=== PATIENT | male | born 1930 | race African-American/Black ===

== ENCOUNTER 2017-12-22 10:59 | Observation (INO) | payer OTHER ==
[2017-12-22] MEDS ORDERED: IPRATROPIUM BROM 0.5MG/2.5ML ONE (11:44)
[2017-12-22] MEDS ORDERED: ALBUTEROL 2.5 MG/3 ML NEB SOL ONE (11:44)
[2017-12-22 12:25] LABS: Absolute Lymphocytes (CBC) 0.8 K/uL (0.7-4.9); Absolute Monocytes 0.7 K/uL (0.1-1.3); Absolute Neutrophil 5.5 K/uL (1.8-8.0); Basophils % 0.2 % (0-1.3); Eosinophils % 0.7 % (0-4.4); Hematocrit 50.8 % (39.6-49.0); Lymphocytes % 11.2 % (15.3-44.8); MCH 27.1 pg (27.0-35.0); MCV 82.7 fL (80-100); MPV 8.3 fL (7.6-11.3); Monocytes % 9.7 % (3.3-12.3); RBC Red Blood Cell Count 6.15 M/uL (4.33-5.43)
[2017-12-22] MEDS ORDERED: METHYLPREDNISOLONE 125 MG INJ ONE (12:29)
[2017-12-22 12:38] LABS: Protime INR 1.07
[2017-12-22 12:47] LABS: Albumin 3.7 g/dL (3.4-5.0); Bilirubin Direct 0.1 mg/dL (0-0.2); Bilirubin Total 0.5 mg/dL (0.2-1.0); CKMB Creatine Kinase MB 3.8 ng/mL (0.3-3.6); Magnesium 2.1 mg/dL (1.8-2.4); Potassium 4.1 mmol/L (3.5-5.1); Protein, Total 8.1 g/dL (6.4-8.2)
--- NOTE | 2017-12-22 12:53 | RAD REPORT ---
EXAM DESCRIPTION: RAD - Chest Single View - 12/22/2017 12:44 pm CLINICAL HISTORY: SOB Chest pain. COMPARISON: Chest Pa And Lat (2 Views) dated 07/03/2017; Chest Single View dated 06/08/2017; CHEST PA AND LAT 2 VIEW dated 06/27/2013; CHEST PA AND LAT 2 VIEW dated 07/13/2011 FINDINGS: Portable technique limits examination quality. The lungs are grossly clear. The heart is normal in size. No displaced fractures. IMPRESSION: No acute intrathoracic process suspected.
--- NOTE | 2017-12-22 13:03 | EKG ---
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
[2017-12-22] MEDS ORDERED: Magnesium Sulfate 2gm IVPB 2 G/50 ML BAG IV ONE (13:38)
--- NOTE | 2017-12-22 14:54 | ER ---
Nurse's Notes [facility] Name: Emilio Acharya Age: 87 yrs Sex: Male : 1930 Arrival Date: 12/22/2017 Time: 11:01 Bed 14 Private MD: Arelis Prakash F Diagnosis: Wheezing Presentation: 12/22 11:25 Presenting complaint: Patient states: Wheezing since Sunday. They saw Dr. Prakash on aj1 Sunday and were prescribed steroids and an inhaler, but he isn't feeling better. Audible wheezing noted. Reports cough. Denies fever. Transition of care: patient was not received from another setting of care. Onset of symptoms was December 19, 2017. Risk Assessment: Do you want to hurt yourself or someone else? Patient reports no desire to harm self or others. Initial Sepsis Screen: Does the patient meet any 2 criteria? No. Patient's initial sepsis screen is negative. Does the patient have a suspected source of infection? No. Patient's initial sepsis screen is negative. Care prior to arrival: None. 11:25 Method Of Arrival: Ambulatory aj1 11:25 Acuity: SHE 3 aj1 Triage Assessment: 11:31 General: Appears in no apparent distress. comfortable, Behavior is calm, cooperative, aj1 appropriate for age. Pain: Denies pain. Neuro: Level of Consciousness is awake, alert, obeys commands. Cardiovascular: Patient's skin is warm and dry. Respiratory: Airway is patent Respiratory effort is even, unlabored, Respiratory pattern is regular, symmetrical, Breath sounds with wheezes bilaterally. Historical: - Allergies: 11:31 No Known Allergies; aj1 - Home Meds: 11:31 amlodipine 10 mg oral tab 1 tab once daily [Active]; aspirin 81 mg Oral TbEC 1 tab once aj1 daily [Active]; lisinopril 10 mg Oral tab 1 tab once daily [Active]; simvastatin 40 mg Oral tab 1 tab once daily [Active]; - PMHx: 11:31 Hyperlipidemia; Hypertension; aj1 - Immunization history:: Flu vaccine is not up to date. - Social history:: Smoking status: Patient/guardian denies using tobacco, the patient reports quitting approximately 50 years ago. - Ebola Screening: : Patient denies travel to an Ebola-affected area in the 21 days before illness onset. Screenin:40 Abuse screen: Denies threats or abuse. Nutritional screening: No deficits noted. rb1 Tuberculosis screening: No symptoms or risk factors identified. Fall Risk None identified. Assessment: 11:40 General: Appears in no apparent distress. comfortable, Behavior is calm, cooperative, rb1 Denies fever. Pain: Denies pain. Neuro: Level of Consciousness is awake, alert, obeys commands, Oriented to person, place, time, situation. Cardiovascular: Capillary refill < 3 seconds is brisk in bilateral fingers. Respiratory: Airway is patent Respiratory effort is even, unlabored, Respiratory pattern is regular, symmetrical, Breath sounds with wheezes bilaterally. GI: No signs and/or symptoms were reported involving the gastrointestinal system. : No signs and/or symptoms were reported regarding the genitourinary system. Derm: Skin is dry, Skin is normal, Skin temperature is warm. 12:38 Reassessment: Patient appears in no apparent distress at this time. Patient and/or rb1 family updated on plan of care and expected duration. Pain level reassessed. Patient is alert, oriented x 3, equal unlabored respirations, skin warm/dry/pink. 13:24 Reassessment: Patient appears in no apparent distress at this time. Patient and/or rb1 family updated on plan of care and expected duration. Pain level reassessed. Patient is alert, oriented x 3, equal unlabored respirations, skin warm/dry/pink. 14:30 Reassessment: Patient appears in no apparent distress at this time. Patient and/or kr2 family updated on plan of care and expected duration. Pain level reassessed. Patient is alert, oriented x 3, equal unlabored respirations, skin warm/dry/pink. Patient denies pain at this time. 15:30 Reassessment: Patient appears in no apparent distress at this time. Patient and/or kr2 family updated on plan of care and expected duration. Pain level reassessed. Patient is alert, oriented x 3, equal unlabored respirations, skin warm/dry/pink. Patient denies pain at this time. 17:22 Reassessment: Patient appears in no apparent distress at this time. Patient and/or kr2 family updated on plan of care and expected duration. Pain level reassessed. Patient is alert, oriented x 3, equal unlabored respirations, skin warm/dry/pink. Patient denies pain at this time. Patient states feeling better. Vital Signs: 11:31 BP 158 / 84; Pulse 89; Resp 24; Temp 97.8(O); Pulse Ox 94% on R/A; Weight 93.89 kg (R); aj1 Height 6 ft. 2 in. (187.96 cm) (R); Pain 0/10; 12:30 BP 151 / 81; Pulse 81; Resp 19; Pulse Ox 100% on R/A; rb1 13:26 BP 151 / 89; Pulse 82; Resp 17; Pulse Ox 97% on R/A; rb1 14:00 BP 146 / 85; Pulse 79; Resp 19; Pulse Ox 97% on R/A; dh3 15:00 BP 164 / 80; Pulse 72; Resp 25; Pulse Ox 96% on R/A; dh3 16:00 BP 156 / 87; Pulse 80; Resp 23; Pulse Ox 98% on R/A; dh3 17:23 BP 156 / 84; Pulse 82; Resp 17; Pulse Ox 99% on R/A; kr2 11:31 Body Mass Index 26.58 (93.89 kg, 187.96 cm) aj1 ED Course: 11:01 Patient arrived in ED. sb2 11:02 Arelis Prakash MD is Private Physician. sb2 11:30 Triage completed. aj1 11:31 Arm band placed on Patient placed in an exam room. aj1 11:36 Prabhakar Sanchez PA is PHCP. jmm 11:36 Salbador Hudson MD is Attending Physician. jmm 11:40 Patient has correct armband on for positive identification. Bed in low position. Call rb1 light in reach. Side rails up X 1. Pulse ox on. NIBP on. 11:47 Margarita Munoz, RN is Primary Nurse. rb1 12:40 Second set of blood cultures drawn by az, by venipuncture 23G to right hand. dh3 12:43 X-ray completed. Portable x-ray completed in exam room. Patient tolerated procedure ml well. 12:45 XRAY Chest (1 view) In Process Unspecified. EDMS 12:55 EKG done, by ED staff, reviewed by Prabhakar TOMPKINS. dh3 13:[address] Colon with Prabhakar TOMPKINS for patient admission consulation. eb 14:53 Arelis Prakash MD is Hospitalizing Provider. [facility] 15:55 Repeat lab(s) drawn. by az, sent to lab. [facility] 17:23 No provider procedures requiring assistance completed. Patient admitted, IV remains in kr2 place. Administered Medications: 11:49 Drug: SOLU-Medrol 125 mg Route: IVP; Site: right antecubital; rb1 13:27 Follow up: Response: No adverse reaction rb1 13:35 Drug: Magnesium Sulfate 2 grams Route: IVPB; Infused Over: 2 hrs; Site: right kr2 antecubital; 17:21 Follow up: Response: No adverse reaction; IV Status: Completed infusion kr2 Outcome: 14:53 Decision to Hospitalize by Provider. [facility] 17:24 Admitted to Tele accompanied by tech, family with patient, via wheelchair, room 415, kr2 with chart, Report called to Samy 17:24 Condition: stable 17:26 Patient left the ED. 2 Signatures: Dispatcher [employer] EDMS Mary Baker, SIMONE RN aj1 Prbahakar Sanchez PA PA [facility] Alta Sharp Rebecca, RN RN rb1 Yolanda Young 3 Angelia Mckeon RN RN kr2 Janine Macario 2 Annie Hilario
--- NOTE | 2017-12-22 14:54 | EDPHYS ---
Physician Documentation [facility] Name: Emilio Acharya Age: 87 yrs Sex: Male : 1930 Arrival Date: 12/22/2017 Time: 11:01 Bed 14 Private MD: Arelis Prakash F ED Physician Salbador Hudson HPI: 12/22 11:39 This 87 yrs old Black Male presents to ER via Ambulatory with complaints of Chest jmm Congestion. 11:39 The patient presents to the emergency department with wheezing, Current therapy: jmm albuterol inhaler, oral albuterol. Onset: The symptoms/episode began/occurred gradually, 3 day(s) ago. Associated signs and symptoms: Pertinent negatives: fever. This is an 87 year old male with a history of HLP, HTN that presents to the ED with cough, wheezing beginning approx 3 days ago. Patient was seen by Dr. Hernández and prescribed azithromycin, prednisone, albuterol without relief. Denies fever or chest pain. Historical: - Allergies: 11:31 No Known Allergies; aj1 - Home Meds: 11:31 amlodipine 10 mg oral tab 1 tab once daily [Active]; aspirin 81 mg Oral TbEC 1 tab once aj1 daily [Active]; lisinopril 10 mg Oral tab 1 tab once daily [Active]; simvastatin 40 mg Oral tab 1 tab once daily [Active]; - PMHx: 11:31 Hyperlipidemia; Hypertension; aj1 - Immunization history:: Flu vaccine is not up to date. - Social history:: Smoking status: Patient/guardian denies using tobacco, the patient reports quitting approximately 50 years ago. - Ebola Screening: : Patient denies travel to an Ebola-affected area in the 21 days before illness onset. ROS: 11:39 Constitutional: Negative for fever, chills, and weight loss, Cardiovascular: Negative jmm for chest pain, palpitations, and edema. 11:39 Abdomen/GI: Negative for abdominal pain, nausea, vomiting, diarrhea, and constipation, Back: Negative for injury and pain, : Negative for injury, bleeding, discharge, and swelling, MS/Extremity: Negative for injury and deformity, Skin: Negative for injury, rash, and discoloration, Neuro: Negative for headache, weakness, numbness, tingling, and seizure. 11:39 Respiratory: Positive for cough, wheezing. 11:39 All other systems are negative. Exam: 11:39 Head/Face: atraumatic. Chest/axilla: Normal chest wall appearance and motion. [facility] Cardiovascular: Regular rate and rhythm. No edema appreciated 11:39 Constitutional: The patient appears in no acute distress, alert, awake. 11:39 Respiratory: mild respiratory distress is noted, Respirations: normal, Breath sounds: wheezing: that is moderate, is heard diffusely. 11:39 Abdomen/GI: Inspection: abdomen appears normal, Bowel sounds: normal, Palpation: abdomen is soft and non-tender, in all quadrants. 11:39 Back: ROM is normal. 11:39 Skin: Appearance: Color: normal in color. 11:39 Neuro: Orientation: is normal, Mentation: is normal, Memory: is normal. Vital Signs: 11:31 BP 158 / 84; Pulse 89; Resp 24; Temp 97.8(O); Pulse Ox 94% on R/A; Weight 93.89 kg (R); aj1 Height 6 ft. 2 in. (187.96 cm) (R); Pain 0/10; 12:30 BP 151 / 81; Pulse 81; Resp 19; Pulse Ox 100% on R/A; rb1 13:26 BP 151 / 89; Pulse 82; Resp 17; Pulse Ox 97% on R/A; rb1 14:00 BP 146 / 85; Pulse 79; Resp 19; Pulse Ox 97% on R/A; dh3 15:00 BP 164 / 80; Pulse 72; Resp 25; Pulse Ox 96% on R/A; dh3 16:00 BP 156 / 87; Pulse 80; Resp 23; Pulse Ox 98% on R/A; dh3 17:23 BP 156 / 84; Pulse 82; Resp 17; Pulse Ox 99% on R/A; kr2 11:31 Body Mass Index 26.58 (93.89 kg, 187.96 cm) aj1 MDM: 11:39 Patient medically screened. [facility] 14:52 Data reviewed: vital signs, nurses notes, lab test result(s), EKG, radiologic studies, [facility] CT scan, plain films. Counseling: I had a detailed discussion with the patient and/or guardian regarding: the historical points, exam findings, and any diagnostic results supporting the discharge/admit diagnosis, lab results, radiology results, the need for further work-up and treatment in the hospital. Response to treatment: the patient's symptoms have mildly improved after treatment. ED course: Dr. Hudson left voicemail with Dr. Colon regarding the patient's status and need for admission. 12/22 11:40 Order name: Basic Metabolic Panel; Complete Time: 12:47 [facility] 12/22 11:40 Order name: CBC with Diff; Complete Time: 12:32 [facility] 12/22 11:40 Order name: Ckmb; Complete Time: 12:47 [facility] 12/22 11:40 Order name: CPK; Complete Time: 12:47 [facility] 12/22 11:40 Order name: LFT's; Complete Time: 12:47 [facility] 12/22 11:40 Order name: Magnesium; Complete Time: 12:47 [facility] 12/22 11:40 Order name: NT PRO-BNP; Complete Time: 12:47 [facility] 12/22 11:40 Order name: PT-INR; Complete Time: 12:46 [facility] 12/22 11:40 Order name: Ptt, Activated; Complete Time: 12:46 [facility] 12/22 11:40 Order name: Troponin (emerg Dept Use Only); Complete Time: 12:47 [facility] 12/22 11:40 Order name: Procalcitonin; Complete Time: 13:21 [facility] 12/22 11:40 Order name: Blood Culture Adult (2) [facility] 12/22 15:01 Order name: Basic Metabolic Panel [facility] 12/22 15:01 Order name: Basic Metabolic Panel [facility] 12/22 11:40 Order name: XRAY Chest (1 view); Complete Time: 13:02 [facility] 12/22 11:40 Order name: EKG; Complete Time: 11:40 [facility] 12/22 11:40 Order name: Cardiac monitoring; Complete Time: 12:42 [facility] 12/22 11:40 Order name: EKG - Nurse/Tech; Complete Time: 12:55 [facility] 12/22 15:01 Order name: CONS Physician Consult [facility] 12/22 15:01 Order name: CBC with Automated Diff [facility] 12/22 15:01 Order name: CBC with Automated Diff [facility] 12/22 15:01 Order name: NT PRO-BNP [facility] 12/22 15:01 Order name: NT PRO-BNP [facility] 12/22 15:01 Order name: Troponin I [facility] 12/22 15:01 Order name: Troponin I; Complete Time: 17:25 [facility] 12/22 15:01 Order name: Troponin I [facility] 12/22 15:36 Order name: Urine Dipstick--Ancillary (enter results) 12/22 15:59 Order name: Urine Dipstick-Ancillary; Complete Time: 16:18 [facility] 12/22 11:40 Order name: IV Saline Lock; Complete Time: 12:42 [facility] 12/22 11:40 Order name: Labs collected and sent; Complete Time: 12:43 [facility] 12/22 11:40 Order name: O2 Per Protocol; Complete Time: 12:43 [facility] 12/22 11:40 Order name: O2 Sat Monitoring; Complete Time: 12:43 [facility] Administered Medications: 11:49 Drug: SOLU-Medrol 125 mg Route: IVP; Site: right antecubital; rb1 13:27 Follow up: Response: No adverse reaction rb1 13:35 Drug: Magnesium Sulfate 2 grams Route: IVPB; Infused Over: 2 hrs; Site: right kr2 antecubital; 17:21 Follow up: Response: No adverse reaction; IV Status: Completed infusion kr2 Disposition: 17:48 Co-signature as Attending Physician, Salbador Hudson MD. rn Disposition: 12/22/17 14:53 Hospitalization ordered by Arelis Prakash for Inpatient Admission. Preliminary diagnosis is Wheezing. - Bed requested for Telemetry/MedSurg (observation). - Status is Inpatient Admission. kr2 - Condition is Stable. - Problem is an acute exacerbation. - Symptoms have improved. UTI on Admission? No Signatures: Dispatcher [employer] [facility] Mary Baker RN RN aj1 Prabhakar Sanchez PA PA [facility] Salbador Hudson MD MD rn Barber, Rebecca, RN RN rb1 Angelia Mckeon RN RN kr2 Annie Hilario Corrections: (The following items were deleted from the chart) 15:40 14:53 Hospitalization Ordered by Arelis Prakash MD for Inpatient Admission. Preliminary diagnosis is Wheezing. Bed requested for Telemetry/MedSurg (observation). Status is Inpatient Admission. Condition is Stable. Problem is an acute exacerbation. Symptoms have improved. UTI on Admission? No. [facility] 17:26 15:40 12/22/2017 14:53 Hospitalization Ordered by Arelis Prakash MD for Inpatient kr2 Admission. Preliminary diagnosis is Wheezing. Bed requested for Telemetry/MedSurg (observation). Status is Inpatient Admission. Condition is Stable. Problem is an acute exacerbation. Symptoms have improved. UTI on Admission? No. eb
[2017-12-22] MEDS ORDERED: ACETAMINOPHEN 500 MG TAB PO PRN (14:57)
[2017-12-22] MEDS ORDERED: ONDANSETRON 4 MG/2 ML VIAL IV PRN (14:57)
[2017-12-22] MEDS ORDERED: ALBUTEROL 2.5 MG/3 ML NEB SOL NEB PRN (14:57)
[2017-12-22] MEDS ORDERED: IPRATROPIUM BROM 0.5MG/2.5ML NEB PRN (14:57)
[2017-12-22 15:58] LABS: Urine Blood NEGATIVE (NEG); Urine Glucose NEGATIVE (NEG); Urine Protein TRACE (NEG); Urine Specific Gravity 1.015 (1.005-1.030); Urine pH 5.5 (5.0-7.0)
--- NOTE | 2017-12-22 17:25 | CON ---
Reason For Cardiology Consult: Second-degree AV block type 1. History Of Present Illness: Mr. Acharya is 87. He has a long history of obstructive lung disease an d for the last week roughly he has been getting more short of breath Dr. Parkash saw him, made some i nterventions that were likely to have helped but the patient continued to get worse and his chief com plaint was wheezing. Since he has been here, he feels better. He has received breathing treatments. I believe he is going to receive antibiotics and steroids as well by Dr. Hudson and emergency room t eam. Apparently, he had been on Levaquin for a few days. The patient has not had heart trouble befo re. He has high blood pressure and has been taking amlodipine for hypertension. He has not been on any medicines which typically cause AV block. Amlodipine 10, lisinopril 10, simvastatin 40, are all the oral medicines he takes. He reports no allergies. He does not use tobacco. He has had no recen t syncope, chest pain. He has had dizzy spells when he stands up. Physical Examination: General: He appears to be his stated age of 87, alert, pleasant. He is in mild respiratory distress . HEENT: Normal. He is somewhat confused. He does not seem to understand the things that are asked t o him or spoken sometimes. I do not think it is hearing, I think he has at least a mild amount of de mentia. Lungs: Reveal wheezing both inspiratory and expiratory either low-pitched. Heart: Reveals a regular rate and rhythm. Abdomen: Soft. Extremities: Trace edema, distal pulses palpable. His EKG shows sinus rhythm. There is second-degree AV block. There is actually only 1 blocked beat. A year ago he had an EKG that was interpreted as accelerated junctional rhythm, but it was actually more likely to be sinus tach with a very long first-degree AV block. There is a questionable anteri or WA versus lung pattern. There is an incomplete right bundle and leftward axis or left anterior fa scicular block. The dropped beat following it the SC interval was almost normal. The SC interval at other times is well over 200 seconds getting close to 350 millisecond duration. Impression: The patient has conducting system disorders. He is not in need of emergent pacemaker. We should of course avoid using digoxin, beta blockers, verapamil, diltiazem. None of those are like ly to be useful anyway and he may benefit from a permanent pacemaker, before we do that we should see what his ejection fraction is, learn something more about his overall heart health. If he has a dep ressed ejection fraction, conduction system disorders, he might benefit from a defibrillator instead. Thank you very much for your kind referral of Mr. Acharya. I will follow him with you. PRAVEENA/DUKE Voice ID: [id number] Report ID: [id number]
[2017-12-22] MEDS: METHYLPREDNISOLONE 40 MG INJ IV SCH (17:39)
[2017-12-22 18:53] VITALS: BMI 26.6
--- NOTE | 2017-12-22 21:25 | RAD REPORT ---
EXAM DESCRIPTION: CT - Chest Angio - 12/22/2017 9:10 pm CLINICAL HISTORY: Chest pain. elevated D-Dimer COMPARISON: CTANGIO CHEST FOR PE dated 06/27/2013CTANGIO CHEST FOR PE dated 06/27/2013 TECHNIQUE: CT angiogram of the pulmonary arteries was performed with MIP. All CT scans are performed using dose optimization technique as appropriate and may include automated exposure control or mA/KV adjustment according to patient size. FINDINGS: No evidence of pulmonary thromboembolism. No acute aortic finding demonstrated. The lungs are clear. No significant pericardial or pleural fluid. Noncalcified pleural plaque noted on the right. Mildly p rominent mediastinal and hilar adenopathy again seen, decreased in size since the comparative study. No concerning bony finding. IMPRESSION: No evidence of pulmonary thromboembolism. No acute lung findings.
[2017-12-23] MEDS: METHYLPREDNISOLONE 40 MG INJ IV SCH ×4 (00:05→23:52)
[2017-12-23 05:09] LABS: Absolute Lymphocytes (CBC) 0.7 K/uL (0.7-4.9); Absolute Monocytes 0.5 K/uL (0.1-1.3); Absolute Neutrophil 4.7 K/uL (1.8-8.0); Basophils % 0.2 % (0-1.3); Hematocrit 46.6 % (39.6-49.0); Lymphocytes % 12.2 % (15.3-44.8); MCH 27.2 pg (27.0-35.0); MPV 8.3 fL (7.6-11.3); Monocytes % 7.9 % (3.3-12.3); RBC Red Blood Cell Count 5.61 M/uL (4.33-5.43)
[2017-12-23 05:29] LABS: Potassium 3.8 mmol/L (3.5-5.1)
[2017-12-23] MEDS: ASPIRIN EC 81 MG TAB PO SCH (09:32)
--- NOTE | 2017-12-23 09:40 | P.CNS ---
Date of Consult: 12/23/17 Reason for Consult: Wheezing Chief Complaint: Shortness of breath History of Present Illness: Patient is 87 years of age a very pleasant man was been having some shortness of breath for about 2 weeks complains of wheezing he quit smoking about 50 years ago denies any pericardial respiratory problems denies any fever chills cough sputum or hemoptysis no chest pain he has a history of hypertension is feels a little better no prior history of obstructive airways disease denies any swelling of his lower extremity patient was treated as an outpatient with steroids and antibiotics with no relief Allergies tomato juice Adverse Reaction (Uncoded 12/22/17 18:04) Hives/Rash Home Medications: Albuterol Sulfate [Ventolin Hfa] 1 puff IH PRN PRN 12/23/17 Amlodipine [Norvasc] 10 mg PO DAILY 12/23/17 Aspirin 81 mg PO DAILY 12/23/17 Azithromycin Tab [Zithromax*] 250 mg PO DAILY 12/23/17 Bimatoprost [Lumigan] 1 drop EACH EYE BEDTIME 12/23/17 Pravastatin Sodium 40 mg PO DAILY 12/23/17 methylPREDNISolone [Methylprednisolone] 4 mg PO DAILY 12/23/17 - Past Medical/Surgical History Diabetic: No -: HTN -: irreg heart rate -: hyperlipidema -: 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, rt eye glacoma/cataract -: appy -: cyst under left arm - Family History Brother Notes: lost all to age - Social History Alcohol use: No CD- Drugs: No Caffeine use: No Place of Residence: Home Review of Systems 10-point ROS is otherwise unremarkable General: Weakness Respiratory: Cough, Shortness of Breath Physical Examination Temp Pulse Resp BP Pulse Ox 97.8 F 75 17 190/98 H 98 12/23/17 08:00 12/23/17 08:00 12/23/17 08:00 12/23/17 08:00 12/23/17 08:00 General: Alert, Oriented x3, Cachectic Neck: Supple Respiratory: Friction rub, Expiratory wheezes Cardiovascular: Normal S1 S2 Gastrointestinal: Normal bowel sounds, Soft and benign Laboratory Data (last 24 hrs) 12/22/17 12:10: PT 12.6 H, INR 1.07, APTT 35.1 12/22/17 12:10: WBC 7.0, Hgb 16.7, Hct 50.8 H, Plt Count 163 12/22/17 12:10: Sodium 142, Potassium 4.1, BUN 13, Creatinine 1.30, Glucose 96, Magnesium 2.1, Total Bilirubin 0.5, AST 26, ALT 18, Alkaline Phosphatase 73 - Problems (1) Shortness of breath Current Visit: Yes Status: Acute Plan: Patient is a pleasant 87 years of age admitted with dyspnea and wheezing for the past 2 weeks no prior history of obstructive airways disease is chest x- rays is clear he has audible wheezing is chemistries and pro calcitonin and negative sat is 98% on room air patient's blood pressure is elevated he is probably underlying diastolic dysfunction change to p.o. prednisone p.o. Lasix resume home amlodipine daily room air pulse ox
[2017-12-23] MEDS ORDERED: AMLODIPINE 10 MG TAB PO SCH (10:00)
[2017-12-23] MEDS: FUROSEMIDE 20 MG TABLET PO SCH (10:16)
[2017-12-23] MEDS: ARFORMOTEROL TARTRATE 15 MCG/2 ML VIAL.NEB NEB SCH ×2 (10:21→20:11)
--- NOTE | 2017-12-23 11:17 | PN ---
Mr. Acharya has had no further episodes of AV block that at least none that has been captured on tele metry. He will do an echo tomorrow. He feels his breathing is getting better and Dr. Edge has s een him. I wonder if he is planning to antibiotics. He should be able to tolerate that. The patien t's blood pressure is not under good control with amlodipine, so I recommend we add hydralazine now. I will certainly do not want to add anything that could block the AV node anymore than it is already . PRAVEENA/DUKE Voice ID: [id number] Report ID: [id number]
[2017-12-23] MEDS: ENOXAPARIN 40 MG/0.4 ML SQ SCH (15:01)
[2017-12-23] MEDS: AZITHROMYCIN 250 MG TAB PO SCH (15:02)
[2017-12-23] MEDS: HYDRALAZINE HCL 25 MG TABLET PO SCH ×2 (15:02→20:47)
--- NOTE | 2017-12-23 19:08 | HP ---
Date of Admission: 12/22/2017 History Of Present Illness: An 87-year-old male, who presented to emergency room with a complaint of increased shortness of breath. The patient has visited my office 2 days earlier. He was wheezing a nd feeling short of breath. He thought that he had acute bronchitis with reactive asthma. He was st arted on Zithromax, albuterol inhaler, and Medrol Dosepak; however, the patient was seen in the emerg ency room and he was admitted for shortness of breath. The patient had no chest pain and voiced no o ther complaints. Review of Systems: Cardiovascular: No complaint. Respiratory: As above. Genitourinary: No complaints. Skeletomuscular: No complaints. Neurological: No complaints. Skeletomuscular: No complaints. Past Medical History: 1.Hypertension. 2.Hyperlipidemia. Social History: No smoking, alcohol, or IV drug abuse history. He said he smoked a little bit when he was very young, but he did not have chronic smoking history. Family History: Noncontributory. Medications: Including amlodipine 10 mg p.o. daily, lisinopril 10 mg p.o. daily, simvastatin 40 mg p .o. daily, aspirin 81 mg p.o. daily. Allergies: TOMATO. Physical Examination: Vital Signs: Blood pressure 190/98, pulse 75, temperature 97.8. Heart: Regular rate and rhythm. Chest: Mild end-expiratory wheezing, definitely less than 2 days ago. Abdomen: Soft, benign, and bowel sounds are active. Neurologic: The patient is alert, oriented, and grossly intact. Extremities: No edema. No cyanosis. Peripheral pulses are felt. The patient's room air pulse oxim etry 98%. Diagnostic Data: Chest x-ray, no acute pathology. EKG showed sinus rhythm with second-degree AV blo ck Mobitz 1, right bundle-branch block, left anterior fascicular block. Chest CT; no evidence of PE. No acute findings. Laboratory Data: CBC; white cell count 5.9, hemoglobin 15.2, hematocrit 46.6, and platelets 15.5. D -dimer was 669. Chemistry; glucose 151. TSH less than 0.3, prolactin less than 0.056. Assessment And Plan: 1.Shortness of breath and wheezing. The patient failed outpatient treatment, was admitted, put him on beta 2 agonist breathing treatments. Lasix p.o. was started for possible congestive heart failure . The patient was put on Solu-Medrol 40 mg IV q.8 hours and oxygen protocol. 2.Hypertension. Dr. White has seen the patient. I think we go ahead and stop his amlodipine becau se of his heart block and we will follow Dr. White' recommendation to be on hydralazine and we will start him on [address] Edge also Pulmonary has seen the patient with us. We will continu e the patient on beta 2 agonist breathing treatments, IV steroids pending cardiac echo, and I think w e will continue his outpatient Zithromax 250 mg daily in element of bronchitis, bacterial still could not be ruled out completely. Look orders for details. MFS/MODL Voice ID: [id number]
[2017-12-23] MEDS ORDERED: ATORVASTATIN 10 MG TAB PO SCH (21:00)
[2017-12-24 06:13] LABS: Absolute Lymphocytes (CBC) 0.9 K/uL (0.7-4.9); Absolute Monocytes 0.4 K/uL (0.1-1.3); Absolute Neutrophil 8.1 K/uL (1.8-8.0); Basophils % 0.1 % (0-1.3); Hematocrit 47.5 % (39.6-49.0); Lymphocytes % 9.9 % (15.3-44.8); MCV 82.6 fL (80-100); MPV 8.4 fL (7.6-11.3); Monocytes % 4.6 % (3.3-12.3); RBC Red Blood Cell Count 5.75 M/uL (4.33-5.43)
[2017-12-24 06:25] LABS: Potassium 4.1 mmol/L (3.5-5.1)
[2017-12-24] MEDS: ARFORMOTEROL TARTRATE 15 MCG/2 ML VIAL.NEB NEB SCH (07:33)
[2017-12-24 08:01] LABS: Blood Morphology Comment NOT SEEN (NOT SEEN); Platelet Estimate ADEQ; Urine White Blood Cell Casts OK
[2017-12-24] MEDS: FUROSEMIDE 20 MG TABLET PO SCH (08:17)
[2017-12-24] MEDS: HYDRALAZINE HCL 25 MG TABLET PO SCH (08:17)
[2017-12-24] MEDS: AZITHROMYCIN 250 MG TAB PO SCH (08:18)
[2017-12-24] MEDS: ASPIRIN EC 81 MG TAB PO SCH (08:18)
[2017-12-24] MEDS: ENOXAPARIN 40 MG/0.4 ML SQ SCH (08:19)
--- NOTE | 2017-12-24 08:31 | EKG ---
Test Date: 2017-12-22 Test Time: 20:44:46 Animal Stunner: RT-O MEASUREMENT RESULTS: Intervals: Rate: 74 IN: 266 QRSD: 118 QT: 432 QTc: 479 [place]: P: 55 IN: 266 QRS: -64 T: 27 INTERPRETIVE STATEMENTS: Sinus rhythm with 1st degree AV block Left anterior fascicular block Left ventricular hypertrophy with QRS widening Cannot rule out Septal infarct, age undetermined Abnormal ECG Compared to ECG 12/22/2017 12:50:05 First degree AV block now present Left ventricular hypertrophy now present Incomplete right bundle-branch block no longer present Myocardial infarct finding still present Electronically Signed On 12-24-17 08:31:10 CDT by Barney White
[2017-12-24] MEDS ORDERED: HOME MED 1 EA UNK (Pravastatin Sodium [Pravastatin Sodium] 40 MG) PO SCH (09:00)
[2017-12-24] MEDS: METHYLPREDNISOLONE 40 MG INJ IV SCH ×2 (10:33→17:48)
--- NOTE | 2017-12-24 11:50 | ECHO ---
HEIGHT: 6 ft 2 in WEIGHT: 207 lb 0 oz DATE OF STUDY: 12/24/[address]: Escobar Edge MD 2-DIMENSIONAL: YES M.MODE: YES DOPPLER: YES COLOR FLOW: YES TDS: NO PORTABLE: NO DEFINITY: NO BUBBLE STUDY: NO DIAGNOSIS: HYPERTENSION CARDIAC HISTORY: CATHERIZATION: SURGERY: PROSTHETIC VALVE: PACEMAKER: MEASUREMENTS (cm) DIASTOLIC (NORMALS) SYSTOLIC (NORMALS) IVSd 1.2 (0.6-1.2) LA Diam 3.6 (1.9-4.0) LVEF 60-69% LVIDd 4.5 (3.5-5.7) LVIDs 3.4 (2.0-3.5) %FS 25% LVPWd 1.2 (0.6-1.2) Ao Diam (2.0-3.7) 2 DIMENSIONAL ASSESSMENT: RIGHT ATRIUM: DILATED LEFT ATRIUM: NORMAL RIGHT VENTRICLE: DILATED LEFT VENTRICLE: MILD LEFT VENTRICULAR HYPERTROPHY TRICUSPID VALVE: NORMAL MITRAL VALVE: NORMAL PULMONIC VALVE: NORMAL AORTIC VALVE: NORMAL PERICARDIAL EFFUSION: NONE AORTIC ROOT: NORMAL LEFT VENTRICULAR WALL MOTION: NORMAL DOPPLER/COLOR FLOW: MILD TRICUSPID REGURGITATION. NORMAL RIGHT VENTRICULAR SYSTOLIC PRESSURE. COMMENTS: NORMAL LEFT VENTRICULAR EJECTION FRACTION. DILATED RIGHT ATRIUM AND RIGHT VENTRICLE. MILD LEFT VENTRICULAR HYPERTROPHY. MILD TRICUSPID REGURGITATION. TECHNOLOGIST: Freda PATEL
[2017-12-24 12:04] VITALS: O2SAT 96
[2017-12-24 12:34] VITALS: BP 170/91; TEMP 98.3
--- NOTE | 2017-12-24 17:19 | PN ---
Subjective: The patient has no increased shortness of breath. No new complaint. Objective: Vital signs: Blood pressure 160/90, pulse 85, temperature 97.8. Heart: Regular rate and rhythm. Chest: End-expiratory wheezing bilaterally. Abdomen: Soft, benign. Neurological: Alert, oriented, grossly intact. Laboratory Data: CBC noted. Chemistry noted. Assessment And Plan: No shortness of breath. The patient has clinically improved, though still pend ing on his cardiac echo. In my opinion the patient's echo is fine, within normal. He could be disch arged on oral prednisone and beta 2 agonist breathing treatments. However, pending that result, we w ill continue current management and treatment. MFS/MODL Voice ID: [id number] Report ID: [id number]
== END 2017-12-24 18:56 | disposition home or self-care (01) ==
LOC: ER 10:59 → ERHOLD 14:56 → 4TH 16:40
PROVIDERS: ADMIT Internal Medicine; ATTEND Internal Medicine
DX: R06.2 Wheezing (principal); I44.1 Atrioventricular block, second degree; I07.1 Rheumatic tricuspid insufficiency; I10 Essential (primary) hypertension; E78.5 Hyperlipidemia, unspecified; Z87.891 Personal history of nicotine dependence; Z79.82 Long term (current) use of aspirin; Z91.018 Allergy to other foods; H54.62 Unqualified visual loss, left eye, normal vision right eye; H40.9 Unspecified glaucoma
CPT/HCPCS: 36415 ×2; 71045; 71275; 80048 ×3; 80076; 81003; 82550; 82553; 83735; 83880 ×2; 84145; 84443; 84484 ×3; 85025 ×3; 85379; 85610; 85730; 87040 ×2; 93005 ×2; 93306; 94640; 94760 ×5; 96365; 96366; 96375; 99285; G0378 ×2; J1650 ×2; J2920 ×7; J2930; J3475; J7605 ×3; Q9967